=== PATIENT | female | born 1980 | race Caucasian/White ===

== ENCOUNTER → 2020-01-27 17:16 | Outpatient (CLI) | payer MEDICAID, SELFPAY | PROVIDERS: PCP Nurse Practitioner Primary Care; Referring Provider Nurse Practitioner Primary Care; Visit Provider Nurse Practitioner Primary Care | DX: Z20.828 Contact with and (suspected) exposure to other viral communicable diseases (principal); Z11.59 Encounter for screening for other viral diseases | CPT/HCPCS: 87635; C9803; U0003 ==

== ENCOUNTER → 2020-05-13 | Outpatient (REF) | payer MEDICAID, SELFPAY | END | disposition home or self-care (01) | LOC: LABSPEC 11:40 | PROVIDERS: PCP Nurse Practitioner Primary Care; Referring Provider Family Medicine; Visit Provider Family Medicine | DX: Z20.822 Contact with and (suspected) exposure to COVID-19 (principal) | CPT/HCPCS: 87635; U0005; U0003 ==

== ENCOUNTER → 2022-02-04 | Outpatient (CLI) | payer MEDICAID, SELFPAY ==
[2022-02-04 10:58] LABS: Thyroid Stim Hormone (TSH) 0.57 uIU/mL (0.358-3.74)
[2022-02-06 09:11] LABS: Thyroid Peroxidase AB < 8 IU/mL (0-34)
== END | disposition home or self-care (01) ==
PROVIDERS: PCP Nurse Practitioner Primary Care; Referring Provider Internal Medicine Endocrinology, Diabetes & Metabolism; Visit Provider Internal Medicine Endocrinology, Diabetes & Metabolism
DX: E04.9 Nontoxic goiter, unspecified (principal)
CPT/HCPCS: 36415; 84443; 86376